=== PATIENT | female | born 1985 | race Caucasian/White ===

== ENCOUNTER 2022-02-26 21:52 | Emergency (ER) | payer MEDICAID, SELFPAY ==
[2022-02-26 22:10] VITALS: BP 135/78; PULSE 76; RESP 18; TEMP 36.8; O2SAT 99; BMI 25.1
[2022-02-26] MEDS: 0.9 % SODIUM CHLORIDE 1000 ml 1,000 ML IV (22:20)
[2022-02-26] MEDS: ONDANSETRON 2 MG/ML inj 4 MG IVP (22:20)
[2022-02-26 22:22] VITALS: TEMP 36.8
[2022-02-26] MEDS: KETOROLAC 30 MG/ML inj IVP (22:22)
[2022-02-26] MEDS: MORPHINE 4 MG/ML INJ IVP (22:24)
[2022-02-26 23:04] LABS: Basophils Percent Auto 0.5 % (0.0-3.0); Chloride* 105 mmol/L (96-114); Eosinophils Percent Auto 0.4 % (0.0-7.0); Hematocrit 41.9 % (33.0-51.0); Hemoglobin* 14.4 gm/dL (12.0-16.0); Immature Granulocytes Pct Auto 0.4 %; Lymphocytes Percent Auto 20.4 % (20-44); Mean Corpuscular HGB Conc 34 gm/dL (32-36); Mean Corpuscular Hemoglobin 30 pg (26-34); Mean Corpuscular Volume 88 fL (80-100); Monocytes Percent Auto 4.1 % (0.0-11.0); Neutrophils Percent Auto 74.2 % (42.0-72.0); Platelet Count* 380 K/uL (140-440); Potassium* 4.2 mmol/L (3.6-5.1); Red Blood Count 4.74 m/uL (4.00-5.20); Sodium* 138 mmol/L (135-149); White Blood Count* 11.41 K/uL (4.50-11.00)
[2022-02-26 23:05] LABS: Albumin* 4.5 g/dL (3.3-5.0)
[2022-02-26 23:07] LABS: Blood Urea Nitrogen* 14 mg/dL (5-24); Carbon Dioxide* 22 mmol/L (20-32); Creatinine* 0.8 mg/dL (0.5-1.5); Est. Creatinine Clearance* 96.36; Estimated Glomerular Filt Rate 99 ml/min; Glucose* 124 mg/dL (60-115)
[2022-02-26 23:08] LABS: Alkaline Phosphatase* 56 U/L (40-150); Aspartate Amino Transferase* 24 U/L (12-35); Bilirubin Direct* 0.1 mg/dL (0.0-0.5); Bilirubin Total* 0.5 mg/dL (0.1-1.5); Calcium* 9.5 mg/dL (8.4-10.6); Total Protein* 7.2 g/dL (6.0-8.3)
[2022-02-26 23:09] LABS: HCG Qualitative Serum* Negative (Negative)
[2022-02-26 23:09] LABS: Alanine Aminotransferase* 18 U/L (4-35)
[2022-02-26 23:13] LABS: C Reactive Protein* < 0.5 mg/dL (0.5-1.0)
[2022-02-26 23:15] LABS: Slide Review Reflex No
--- NOTE | 2022-02-26 23:21 | CRLHL7_ITS ---
For Patients: As a result of the Century Cures Act, medical imaging exams and procedure reports are released immediately into your electronic medical record. You may view this report before your referring provider. If you have questions, please contact your health care provider. INDICATION: Abdominal pain right lower quadrant pain.. TECHNIQUE: CT abdomen and pelvis acquired with 79 cc Isovue 370 IV contrast. COMPARISON: None. FINDINGS: Lower chest: Unremarkable. Liver: Unremarkable. Normal in size and attenuation. No suspicious masses. Gallbladder and bile ducts: Status post cholecystectomy. Mild intra and extra biliary ductal dilatation likely related to reservoir effect. Pancreas: Unremarkable. No mass or inflammation. Spleen: Unremarkable. Normal in size. No masses. Adrenal glands: Unremarkable. No nodules. Kidneys: Moderate right hydronephrosis. There is enhancement of the proximal right ureter up until the region of obstruction at a 6 millimeter stone in the distal 3rd of the right ureter (2/125). Punctate nonobstructing stone identified in the inferior pole of the right kidney (2/76; 4/42). No left hydronephrosis, hydroureter renal stones identified. GI tract: Unremarkable. Normal in caliber. No sign of mass or inflammation. Normal appendix. Vasculature: Abdominal aorta is normal in caliber. Mesenteric arteries are patent. Lymph nodes: No lymphadenopathy. Peritoneum/Abdominal Wall: Unremarkable. No sign of mass or infiltration. No free air or significant free fluid. Pelvis: Unremarkable. Bones: Unremarkable for age. IMPRESSION: 6 millimeter stone in the distal 3rd of the right ureter with proximal moderate hydroureteronephrosis. There is also enhancement of the majority of the right ureter to the level of the stone likely reactive inflammatory changes from passage of stone although mild infectious process not entirely excluded. Status post cholecystectomy. Please note that all CT scans at this facility use dose modulation, iterative reconstruction, and/or weight-based dosing when appropriate to reduce radiation dose to as low as reasonably achievable. Dictated by Lolis Corley MD @ 02/27/2022 12:07:47 AM (Electronically Signed)
[2022-02-26 23:34] LABS: SARS PCR* Negative SARS-CoV-2 (Negative)
[2022-02-27 00:45] VITALS: BP 106/68; PULSE 77; RESP 18; TEMP 36.6; O2SAT 95
[2022-02-27] MEDS: TAMSULOSIN HCL 0.4 MG CAPSULE PO (00:50)
--- NOTE | 2022-02-27 01:21 | ED.ABDPAIN ---
HPI - Abdominal Pain General Chief Complaint: Abdominal Pain Stated Complaint: Abdominal Pain Time Seen by Provider: 02/26/22 21:53 History of Present Illness HPI narrative: 36-year-old woman presenting to emergency department with onset of pain about 5 hours prior to presentation. I am called from another patient room to see Ms. Mitchell in notable discomfort. Sharp pain has escalated quickly. She has not had any dysuria nor noted any hematuria. Is noted to me initially that has right lower quadrant abdominal pain but later questioning she does also make mention that had been having some right flank pain. No fever. No constipation or diarrhea. Is nauseated. Pain preceded vomiting. No chest pain. No shortness of breath. Does have a history of ruptured ovarian cyst but that was many years ago with no problems since. Completed menses earlier this week. Status post cholecystectomy No personal or family history of kidney stones. Related Data Previous Rx's Medication Instructions Recorded tamsulosin 0.4 mg capsule (Flomax) 0.4 mg PO DAILY #10 caps 02/27/22 Allergies Allergy/AdvReac Type Severity Reaction Status Date / Time No Known Drug Allergies Allergy Verified 02/26/22 23:31 Review of Systems Status of ROS Reports: 10 or more systems reviewed and unremarkable except as noted in History and below PFSH [facility] Social History Smoking Status: Never smoker How often do you have a drink containing alcohol: never AUDIT-C Alcohol total score: 0 Non-prescribed substance use: denies use Exam Narrative: Exam Narrative: Initially very uncomfortable. Has emesis bag and standing bent over the exam bed. Little breathless in apparent pain. Rather stoic though. Returning later to examine she has received medications and is much more comfortable. Cranial nerves 2-12 intact Oropharynx is moist Lungs are clear. Examination of the back does reveal some right flank tenderness. Abdomen is soft the tenderness is not really in McBurney's and not really clearly adnexal somewhere between in the right lower quadrant area. No peritoneal signs. No masses. Moving all extremities out difficulty. She is well-perfused. No edema cardiovascular regular rate and rhythm no murmur rub or gallop appreciated. Const: Vital Signs, click to edit/add: Vital Signs - 24 hr 02/26/22 22:10 02/26/22 22:22 02/27/22 00:45 Temperature 98.2 F 98.2 F 97.9 F Pulse Rate [Right Pulse Oximeter] 76 77 Respiratory Rate 18 18 Blood Pressure [Ri ght Upper Arm] 135/78 106/68 Pulse Oximetry 99 95 Oxygen Delivery Me thod Room Air Room Air Documenting provider has reviewed patient's vital signs: yes Course Course Hospital Course: Following dosing of medication initiated on IV fluids is much more comfortable. Still sore but tolerable. Vital Signs Vital signs: Initial Vital Signs Temperature 98.2 F 02/26/22 22:10 Temperature Source Temporal Artery Scan 02/26/22 22:10 Pulse Rate 76 02/26/22 22:10 Respiratory Rate 18 02/26/22 22:10 Blood Pressure 135/78 02/26/22 22:10 Blood Pressure Mean 97 02/26/22 22:10 Blood Pressure Position Sitting 02/26/22 22:10 Pulse Oximetry 99 02/26/22 22:10 Oxygen Delivery Method 02/26/22 22:10 Vital Signs Temperature 98.2 F 02/26/22 22:10 Pulse Rate 76 02/26/22 22:10 Respiratory Rate 18 02/26/22 22:10 Blood Pressure 135/78 02/26/22 22:10 Pulse Oximetry 99 02/26/22 22:10 Oxygen Delivery Method 02/26/22 22:10 Temperature 97.9 F 02/27/22 00:45 Pulse Rate 77 02/27/22 00:45 Respiratory Rate 18 02/27/22 00:45 Blood Pressure 106/68 02/27/22 00:45 Pulse Oximetry 95 02/27/22 00:45 Oxygen Delivery Method 02/27/22 00:45 MDM - Abdominal Pain MDM Narrative Medical decision making narrative: With white count mildly elevated, urinalysis still pending, decide to proceed with CT scan of abdomen pelvis. Had spoken also with our medical laboratory technologist who is nearby. I do review CT imaging noting distal right ureteral stone. radiology over-read is below I initially understood this to be an 8 mm stone and had placed a call to [facility] for consult but during this phone call it appeared that was revised to 6 mm and I would presume standard cares in order; never actually spoke to urologist. IMPRESSION: 6 millimeter stone in the distal 3rd of the right ureter with proximal moderate hydroureteronephrosis. There is also enhancement of the majority of the right ureter to the level of the stone likely reactive inflammatory changes from passage of stone although mild infectious process not entirely excluded. Status post cholecystectomy. Lab Data Attestation: I reviewed the patient's lab results. Labs: Lab Results 02/26/22 02/26/22 02/26/22 Range/Units 22:51 22:51 22:51 WBC 11.41 H (4.50-11.00) K/uL RBC 4.74 (4.00-5.20) m/uL Hgb 14.4 (12.0-16.0) gm/dL Hct 41.9 (33.0-51.0) % MCV 88 (80-100) fL MCH 30 (26-34) pg MCHC 34 (32-36) gm/dL RDW Coeff of Katerina 12.0 (11.5-15.5) % Plt Count 380 (140-440) K/uL Neut % (Auto) 74.2 H (42.0-72.0) % Lymph % (Auto) 20.4 (20-44) % [place] % (Auto) 4.1 (0.0-11.0) % Eos % (Auto) 0.4 (0.0-7.0) % Baso % (Auto) 0.5 (0.0-3.0) % Neut # (Auto) 8.50 H (1.7-7.0) K/uL Lymph # (Auto) 2.30 (0.90-2.90) K/uL [place] # (Auto) 0.50 (0.00-0.90) K/UL Eos # (Auto) 0.00 (0.00-0.50) K/uL Baso # (Auto) 0.10 (0.00-0.30) K/uL Abs Immat Gran (auto) 0.00 (0.00-0.30) K/uL Imm/Tot Granulo (auto) 0.4 % Sodium 138 (135-149) mmol/L Potassium 4.2 (3.6-5.1) mmol/L Chloride 105 (96-114) mmol/L Carbon Dioxide 22 (20-32) mmol/L BUN 14 (5-24) mg/dL Creatinine 0.8 (0.5-1.5) mg/dL Estimated Creat Clear 96.36 Estimated GFR 99 ml/min Glucose 124 H (60-115) mg/dL Calcium 9.5 (8.4-10.6) mg/dL Total Bilirubin 0.5 (0.1-1.5) mg/dL Direct Bilirubin 0.1 (0.0-0.5) mg/dL AST 24 (12-35) U/L ALT 18 (4-35) U/L Alkaline Phosphatase 56 (40-150) U/L C-Reactive Protein < 0.5 L (0.5-1.0) mg/dL Total Protein 7.2 (6.0-8.3) g/dL Albumin 4.5 (3.3-5.0) g/dL HCG, Qual (Negative) SARS-CoV-2 (PCR) (Negative) 02/26/22 02/26/22 Range/Units 22:51 Unknown WBC (4.50-11.00) K/uL RBC (4.00-5.20) m/uL Hgb (12.0-16.0) gm/dL Hct (33.0-51.0) % MCV (80-100) fL MCH (26-34) pg MCHC (32-36) gm/dL RDW Coeff of Katerina (11.5-15.5) % Plt Count (140-440) K/uL Neut % (Auto) (42.0-72.0) % Lymph % (Auto) (20-44) % [place] % (Auto) (0.0-11.0) % Eos % (Auto) (0.0-7.0) % Baso % (Auto) (0.0-3.0) % Neut # (Auto) (1.7-7.0) K/uL Lymph # (Auto) (0.90-2.90) K/uL [place] # (Auto) (0.00-0.90) K/UL Eos # (Auto) (0.00-0.50) K/uL Baso # (Auto) (0.00-0.30) K/uL Abs Immat Gran (auto) (0.00-0.30) K/uL Imm/Tot Granulo (auto) % Sodium (135-149) mmol/L Potassium (3.6-5.1) mmol/L Chloride (96-114) mmol/L Carbon Dioxide (20-32) mmol/L BUN (5-24) mg/dL Creatinine (0.5-1.5) mg/dL Estimated Creat Clear Estimated GFR ml/min Glucose (60-115) mg/dL Calcium (8.4-10.6) mg/dL Total Bilirubin (0.1-1.5) mg/dL Direct Bilirubin (0.0-0.5) mg/dL AST (12-35) U/L ALT (4-35) U/L Alkaline Phosphatase (40-150) U/L C-Reactive Protein (0.5-1.0) mg/dL Total Protein (6.0-8.3) g/dL Albumin (3.3-5.0) g/dL HCG, Qual Negative (Negative) SARS-CoV-2 (PCR) Negative SARS-CoV-2 (Negative) Discharge Plan Discharge Clinical Impression: Ureteral colic, Right ureteral calculus Patient Disposition: Home, Self-Care Condition: Improved Additional Instructions: Focus on hydration. Can take up to 800 mg of ibuprofen per dose which may be combined with any of your prescribed medications. Return for persistent uncontrolled pain, repeated vomiting, associated fever. Follow-up if pain persisting in 5 days. Strain urine over this next week please. Prescription for Flomax sent in. Otherwise Percocet and Zofran from [facility]. Prescriptions: New tamsulosin [Flomax] 0.4 mg capsule 0.4 mg PO DAILY Qty: 10 0RF Follow Up/Referrals: Lynn Alarcon DO [Primary Care Provider] - Stand Alone Forms: [employer] Info Instructions
== END 2022-02-27 00:57 | disposition home or self-care (01) ==
PROVIDERS: Emergency Provider Family Medicine; PCP Family Medicine
DX: N20.1 Calculus of ureter (principal)
CPT/HCPCS: 36415; 74177; 80048; 80076; 81001; 84703; 85025; 86140; 87635; 96361; 96374; 96375; 99284; A9270; J1885; J2270; J2405; J7030; Q9967